=== PATIENT | female | born 1930 ===

== ENCOUNTER 2018-07-15 11:52 | Emergency (ER) | payer OTHER ==
[~2018-07-15] VITALS: Ht 167.6 cm; Wt 82.1 kg
[~2018-07-15 11:52] MED LIST: IOPHEN DM-100 MG/5 M PO; TOBRADEX EYE DR10 ML OP
[2018-07-15] MEDS ORDERED: ENALAPRIL MALEA10 MG (12:50)
[2018-07-15] MEDS ORDERED: TOPROL XL25 M1 (12:51)
[2018-07-15] MEDS ORDERED: RISPERDAL1 MG (12:51)
[2018-07-15] MEDS ORDERED: SYNTHROID75 MCG (12:51)
[2018-07-15] MEDS ORDERED: RAZADYNE ER16 MG (12:52)
[2018-07-15] MEDS ORDERED: NAMENDA10 MG (12:52)
[2018-07-15] MEDS ORDERED: ZOCOR20 MG (12:53)
[2018-07-15] MEDS ORDERED: TRAMADOL HCL50 MG (12:53)
== END 2018-07-15 20:52 | disposition home or self-care (01) ==
LOC: ER 11:52
DX: K80.80 Other cholelithiasis without obstruction (principal); K80.50 Calculus of bile duct without cholangitis or cholecystitis without obstruction; M54.89 Other dorsalgia; G30.8 Other Alzheimer's disease; F02.80 Dementia in other diseases classified elsewhere, unspecified severity, without behavioral disturbance, psychotic disturbance, mood disturbance, and anxiety

== ENCOUNTER 2018-08-18 10:38 | Day surgery (SDC) | payer OTHER ==
[~2018-08-18 10:38] MED LIST changes: +ENALAPRIL MALEA10 MG; +NAMENDA10 MG; +RAZADYNE ER16 MG; +RISPERDAL1 MG; +SYNTHROID75 MCG; +TOPROL XL25 M1; +TRAMADOL HCL50 MG; +ZOCOR20 MG
== END 2018-08-18 16:10 | disposition home or self-care (01) ==
LOC: AMB-ERCP 10:38 → CIR.AMB 10:41 → AMB-ERCP 16:10 → CIR.AMB 18:15
DX: K80.70 Calculus of gallbladder and bile duct without cholecystitis without obstruction (principal)

== ENCOUNTER 2020-11-25 13:00 | Outpatient (CLI) | payer OTHER | END 2020-11-25 15:00 | disposition home or self-care (01) | LOC: ASH CLINIC 13:00 | PROVIDERS: ATTEND Internal Medicine | DX: Z23 Encounter for immunization (principal); U07.1 COVID-19 ==